=== PATIENT | male | born 1955 ===

== ENCOUNTER 2018-04-19 14:49 | Emergency (ER) | payer SELFPAY ==
[2018-04-19 15:08] VITALS: O2SAT 99
[2018-04-19] MEDS ORDERED: Iohexol 240 (50 ml) PO STA (15:21)
[2018-04-19] MEDS ORDERED: Sodium Chloride 0.9% 1,000 ML IV STA (15:22)
[2018-04-19] MEDS ORDERED: Iohexol 240 (50 ml) ONE (15:45)
--- NOTE | 2018-04-19 15:58 | ED PDOC ---
HPI: Abdomen Time Seen by Provider: 04/19/18 15:15 Chief Complaint (Nursing): Abdominal Pain Chief Complaint (Provider): Abdominal Pain History Per: Patient History/Exam Limitations: no limitations Onset/Duration Of Symptoms: Days (one week) Current Symptoms Are (Timing): Still Present Quality Of Discomfort: "Pain" Associated Symptoms: Vomiting. denies: Fever, Chills, Urinary Symptoms Additional Complaint(s): 62 year old male presents to the ED for an evaluation of swelling on the groin onset for 1 week. He states of abdominal pain yesterday. The pain worsens when getting up, sitting down or lifting. Today, patient had multiple non-bilious and non-bloody vomiting. Patient is able to tolerate small amounts of fluids except for food. He had a normal bowel movement earlier. Also reports of right inguinal hernia repair in 1990. Patient has been here in the [facility] for one month and on tour from [facility]. Otherwise, patient denies fever, chills, distended abdomen, urinary symptoms, black or bloody stool. PMD: no family provider Past Medical History Reviewed: Historical Data, Nursing Documentation, Vital Signs Vital Signs: Last Vital Signs Temp 98.1 F 04/19/18 15:04 Pulse 89 04/19/18 15:04 Resp 18 04/19/18 15:04 BP 136/86 04/19/18 15:04 Pulse Ox 99 04/19/18 15:04 - Medical History PMH: No Chronic Diseases - Surgical History Surgical History: Hernia Repair - Family History Family History: States: No Known Family Hx - Social History Current smoker - smoking cessation education provided: No - Home Medications Home Medications: Ambulatory Orders Medication Instructions Recorded Ondansetron ODT [Zofran ODT] 1 odt PO Q6 PRN #20 odt 04/19/18 RX: Ibuprofen [Motrin Tab] 600 mg PO Q8 PRN #30 tab 04/19/18 - Allergies Allergies/Adverse Reactions: Allergies Allergy/AdvReac Type Severity Reaction Status Date / Time No Known Allergies Allergy Verified 04/19/18 14:59 Review of Systems ROS Statement: Except As Marked, All Systems Reviewed And Found Negative (As per HPI, otherwise negative) Constitutional: Negative for: Fever, Chills Gastrointestinal: Positive for: Vomiting (non-bilious and non-bloody ), Abdominal Pain. Negative for: Melena Genitourinary Male: Negative for: Dysuria, Frequency, Incontinence, Hematuria Physical Exam - Reviewed Nursing Documentation Reviewed: Yes Vital Signs Reviewed: Yes - Physical Exam Appears: Positive for: No Acute Distress Head Exam: Positive for: ATRAUMATIC, NORMOCEPHALIC Skin: Positive for: Warm, Dry Eye Exam: Positive for: EOMI, PERRL ENT: Negative for: Pharyngeal Erythema, Tonsillar Exudate Neck: Positive for: Painless ROM, Supple Cardiovascular/Chest: Positive for: Regular Rate, Rhythm. Negative for: Murmur Respiratory: Positive for: Normal Breath Sounds. Negative for: Respiratory Distress Gastrointestinal/Abdominal: Positive for: Soft, Tenderness (RLQ). Negative for: Mass, Distended, Guarding, Rebound Male Genital Exam: Positive for: normal genitalia (No scrotun swelling), inguinal tenderness (large firm round swollen right inguinal hernia that is tender and non reducible) Back: Positive for: Normal Inspection. Negative for: L CVA Tenderness, R CVA Tenderness Extremity: Positive for: Normal ROM. Negative for: Deformity Lymphatic: Negative for: Adenopathy Neurologic/Psych: Positive for: Alert. Negative for: Motor/Sensory Deficits - Laboratory Results Result Diagrams: 04/19/18 16:00 04/19/18 16:00 - ECG O2 Sat by Pulse Oximetry: 99 (RA) Pulse Ox Interpretation: Normal Medical Decision Making Medical Decision Making: Time: 1521 Impression: right inguinal hernia Differential Diagnosis includes but is not limited to: right inguinal hernia strangulation vs mass vs obstruction vs incarceration Plan: -- Abdomen Pelvis PO & IV -- Labs -- Udip -- IV fluids -- Zofran 8mg IV 1750 Patient seen and evaluated by certified surgical technician, who was able to reduce inguinal hernia. Patient to follow up outpatient for further evaluation currently pending CT read Name: NA GARVIN Exam Date: Apr 19, 2018 6:15:18 PM EST Modality Type: CT Description: CT - ABDOMEN AND PELVIS WITH CORONAL AND SAGITTAL MPRS Gender: M Laterality: Not applicable : 55 Referring Physician: Malia Rodriguez EXAM: CT Abdomen and Pelvis with IV contrast CLINICAL HISTORY: Abd pain, vomiting rt inguinal swelling with irreducible hernia TECHNIQUE: Axial computed tomography images of the abdomen and pelvis with intravenous contrast. CONTRAST: With intravenous contrast. COMPARISON: None provided. FINDINGS: LUNG BASES: The lung bases appear clear. No pleural effusions are seen. LIVER: Unremarkable. GALLBLADDER AND BILE DUCTS: The gallbladder appears within normal limits. No radioopaque gallstones are seen. No biliary ductal dilatation is evident. PANCREAS: Unremarkable. SPLEEN: Unremarkable. ADRENAL GLANDS: Unremarkable. KIDNEYS, URETERS, AND BLADDER: The kidneys appear within normal limits. 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 There is no hydronephrosis or hydroureter. No urinary calculi are seen. STOMACH AND BOWEL: Unremarkable appearance of the stomach and bowel. No evidence of bowel obstruction. APPENDIX: No evidence of acute appendicitis on CT examination. PERITONEUM: No free fluid. No free air. Within the mesenteric cystic lesion in the right lower quadrant, measures (15-18 HU) which measures approximately 3.9 x 5.0 x 14.0 cm in craniocaudal, AP and transverse dimensions respectively. This mass abuts the medial wall of the lower ascending colon. A small-moderate sized right inguinal hernia is present which contains fat. LYMPH NODES: No lymphadenopathy is evident. REPRODUCTIVE: There is prostatic hypertrophy noted. The prostate gland measures up to approximately 6.8 cm transversely. VASCULATURE: No evidence of abdominal aortic aneurysm. BONES: No aggressive appearing osseous lesion. No acute osseous pathology evident. There is evidence of mild degenerative disc disease at L5-S1. IMPRESSION: 1. A large cylindrical shaped cystic lesion identified within the mesenteric fat of the right lower quadrant. May represent a mesenteric or duplication cyst. Consider further evaluation with MRI pre/post contrast. 2. A [id number] right inguinal hernia is present which contains fat. 3. Prostatic hypertrophy. Measurement is given above. Electronically signed on Apr 19, 2018 7:28:48 PM EST by: Derrick Weathers M.D., MBA Certified By [employer] & [employer] Fellowship Trained MRI and CT Specialist [id number] Stable for discharge. Advised followup clinic for surgery eval. Scribe Attestation: Documented by Francisca Bonds, acting as a scribe for Malia Rodriguez MD. Provider Scribe Attestation: All medical record entries made by the Scribe were at my direction and personally dictated by me. I have reviewed the chart and agree that the record accurately reflects my personal performance of the history, physical exam, medical decision making, and the department course for this patient. I have also personally directed, reviewed, and agree with the discharge instructions and disposition. Disposition - Clinical Impression Clinical Impression: Inguinal hernia Counseled Patient/Family Regarding: Studies Performed, Diagnosis, Need For F ollowup, Rx Given - Disposition Referrals: [facility] [Outside] Disposition: Routine/Home Disposition Time: 19:43 Condition: IMPROVED Prescriptions: RX: Ibuprofen [Motrin Tab] 600 mg PO Q8 PRN #30 tab PRN Reason: Pain, Moderate (4-7) Ondansetron ODT [Zofran ODT] 1 odt PO Q6 PRN #20 odt PRN Reason: Nausea/Vomiting Instructions: Groin Hernia (DC) Print Language: LITHUANIAN
[2018-04-19 16:18] LABS: BASO % 0.2 % (0.0-2.0); EOS % 0.1 % (0.0-4.0); HEMOGLOBIN 17.1 g/dL (12.0-18.0); LYMPH # 0.9 K/uL (1.0-4.3); LYMPH % 11.4 % (20.0-40.0); MEAN CELL VOLUME 90.3 fl (80.0-94.0); MEAN CORPUSCULAR HGB CONC 33.2 g/dL (33.0-37.0); MONO # 0.4 K/uL (0.0-0.8); NEUT # 6.6 K/uL (1.8-7.0); NEUT % 83.3 % (50.0-75.0); NRBC % 0.1 % (0.0-0.0); RBC 5.7 Mil/uL (4.40-5.90); WHITE BLOOD COUNT 7.9 K/uL (4.8-10.8)
[2018-04-19 16:29] LABS: ALB/GLOB RATIO 1.3 (1.0-2.1); ALBUMIN 4.4 g/dL (3.5-5.0); ALT/SGPT 19 U/L (21-72); AST/SGOT 25 U/L (17-59); BLOOD UREA NITROGEN 18 mg/dl (9-20); CALCIUM 9.8 mg/dL (8.4-10.2); GFR NON-AFRICAN AMERICAN > 60
[2018-04-19] MEDS ORDERED: Iohexol 300 100 ML IJ ONE (17:25)
[2018-04-19] MEDS ORDERED: Sodium Chloride 0.9% 50 ML IV ONE (17:25)
--- NOTE | 2018-04-19 17:56 | CP.PCM.CON ---
History of Present Illness - History of Present Illness History of Present Illness: Surgery: Dr. Hays Reason for consult: possible incarcerated right inguinal hernia HPI: Patient is a 62 y/o male w/ pmhx of right IHR in 1990, presents complaining of right groin pain for approximately 5 days. He states he noticed a bulge which increases in size with lifting and straining. He reports associated nausea and 1 episode of vomiting yesterday. He reports normal bowel movement yesterday and is passing flatus. He has been tolerating liquids w/o vomiting. He denies f/c chest pain or shortness of breath. PMH: denies PSH: right IHR Social: denies substance abuse Review of Systems - Constitutional Constitutional: absent: Anorexia, Chills, Fever - EENT Eyes: Decreased Night Vision. absent: Blind Spots, Blurred Vision Ears: absent: Disequilibrium, Dizziness Nose/Mouth/Throat: absent: Nasal Congestion, Nasal Trauma - Cardiovascular Cardiovascular: absent: Chest Pain, Dyspnea - Respiratory Respiratory: absent: Cough, Dyspnea - Gastrointestinal Gastrointestinal: Nausea, Vomiting. absent: Abdominal Pain, Bloating, Change in Stool Character, Cramping, Diarrhea Additional comments: hernia right groin, reduced - Reproductive: Male Additional comments: no testicular pain or mass, inguinal canal clear on right - Musculoskeletal Musculoskeletal: absent: Muscle Weakness, Myalgias - Neurological Neurological: absent: Disequilibrium, Dizziness - Psychiatric Psychiatric: absent: Anxiety, Depression - Endocrine Endocrine: absent: Polydipsia, Polyphagia - Hematologic/Lymphatic Hematologic: absent: Easy Bleeding, Easy Bruising Past Patient History - Past Social History Smoking Status: Current Some Days Smoker - PSYCHIATRIC Hx Substance Use: No - SURGICAL HISTORY Hx Herniorrhaphy: Yes (rt) - ANESTHESIA Hx Anesthesia: Yes Hx Anesthesia Reactions: No Meds Allergies/Adverse Reactions: Allergies Allergy/AdvReac Type Severity Reaction Status Date / Time No Known Allergies Allergy Verified 04/19/18 14:59 - Medications Medications: Current Medications Dextrose/Sodium Chloride (Dextrose 5%-0.9% Ns 500 Ml) 1,000 mls @ 100 mls/hr IV .Q10H ONE Stop: 04/20/18 01:29 Last Admin: 04/19/18 16:59 Dose: 100 mls/hr Physical Exam - Constitutional Appears: Non-toxic, No Acute Distress - Head Exam Head Exam: ATRAUMATIC, NORMOCEPHALIC - Eye Exam Eye Exam: EOMI, Normal appearance - ENT Exam ENT Exam: Mucous Membranes Moist - Respiratory Exam Respiratory Exam: NORMAL BREATHING PATTERN. absent: Respiratory Distress - Cardiovascular Exam Cardiovascular Exam: REGULAR RHYTHM. absent: Tachycardia - GI/Abdominal Exam GI & Abdominal Exam: Hernia (rigth groin, reduced ), Soft. absent: Distended, Guarding, Tenderness - Rectal Exam Rectal Exam: Deferred - Exam Exam: absent: Circumcision, Scrotal Swelling, Testicular Tenderness External exam: NORMAL EXTERNAL EXAM - Extremities Exam Extremities exam: Positive for: normal inspection. Negative for: calf tenderness - Neurological Exam Neurological exam: Alert, Oriented x3 - Psychiatric Exam Psychiatric exam: Normal Affect, Normal Mood - Skin Skin Exam: Dry, Normal Color, Warm Results - Vital Signs Recent Vital Signs: Last Vital Signs Temp 98.1 F 04/19/18 15:04 Pulse 89 04/19/18 15:04 Resp 18 04/19/18 15:04 BP 136/86 04/19/18 15:04 Pulse Ox 99 04/19/18 16:10 - Labs Result Diagrams: 04/19/18 16:00 04/19/18 16:00 Labs: Laboratory Results - last 24 hr 04/19/18 04/19/18 16:00 16:00 WBC 7.9 RBC 5.70 Hgb 17.1 Hct 51.5 H MCV 90.3 MCH 30.0 MCHC 33.2 RDW 13.0 Plt Count 242 MPV 8.0 Neut % (Auto) 83.3 H Lymph % (Auto) 11.4 L [place] % (Auto) 5.0 Eos % (Auto) 0.1 Baso % (Auto) 0.2 Neut # (Auto) 6.6 Lymph # (Auto) 0.9 L [place] # (Auto) 0.4 Eos # (Auto) 0.0 Baso # (Auto) 0.0 Sodium 141 Potassium 4.2 Chloride 101 Carbon Dioxide 30 Anion Gap 14 BUN 18 Creatinine 0.8 Est GFR ( Amer) > 60 Est GFR (Non-Af Amer) > 60 Random Glucose 103 Calcium 9.8 Total Bilirubin 0.4 AST 25 ALT 19 L Alkaline Phosphatase 103 Total Protein 7.7 Albumin 4.4 Globulin 3.3 Albumin/Globulin Ratio 1.3 Assessment & Plan - Assessment and Plan (Free Text) Assessment: 62 y/o male w/ recurrent right inguinal hernia, reduced Plan: -hernia reduced bedside -f/u CT w/ po contrast -if negative ok for discharge home from surgical standpoint and f/u outpatient f or elective surgical repair -d/w Dr. Saúl Burleson PGY4
[2018-04-19 20:00] VITALS: BP 123/81; PULSE 84; RESP 17; TEMP 97.9
--- NOTE | 2018-04-20 11:29 | CT ---
Date of service: 04/19/2018 PROCEDURE: CT Abdomen and Pelvis with contrast HISTORY: RIGHT inguinal swelling with irreducible hernia COMPARISON: None. TECHNIQUE: Contrast dose: 95 mL Omnipaque 300 Radiation dose: Total exam DLP = 726.67 mGy-cm. This CT exam was performed using one or more of the following dose reduction techniques: Automated exposure control, adjustment of the mA and/or kV according to patient size, and/or use of iterative reconstruction technique. FINDINGS: LOWER THORAX: Unremarkable. LIVER: Unremarkable. No gross lesion or ductal dilatation. GALLBLADDER AND BILE DUCTS: Unremarkable. PANCREAS: Unremarkable. No gross lesion or ductal dilatation. SPLEEN: Unremarkable. ADRENALS: Unremarkable. No mass. KIDNEYS AND URETERS: Unremarkable. No hydronephrosis. No solid mass. VASCULATURE: Unremarkable. No aortic aneurysm. No aortic atherosclerotic calcification or mural plaque present. BOWEL: No bowel obstruction. No abnormal bowel loops. Medial to the base of the cecum there is a tubular fluid collection measuring roughly 4.9 x 13.7 cm. 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 Differential diagnosis includes a nonspecific mesenteric cyst. Surgical excision should be considered. No focal mural thickening appreciated. No evidence of intraperitoneal mucous deposits APPENDIX: Appendix not discretely identified aside from fluid collection noted above. PERITONEUM: No ascites. No pneumoperitoneum. Right inguinal hernia containing only mesenteric fat and no bowel. LYMPH NODES: Unremarkable. No enlarged lymph nodes. BLADDER: Unremarkable. REPRODUCTIVE: Mild prostate enlargement. BONES: No acute fracture. OTHER FINDINGS: None. IMPRESSION: Right inguinal hernia containing only mesenteric fat and no bowel. Incidental tubular fluid collection adjacent to and with mass effect upon the base of the cecum suspicious for appendiceal mucocele, approximately 13.7 cm in greatest dimension. Surgical excision should be considered. The preliminary findings for this examination were reported by [facility] at 7:28 p.m. on 04/19/2018. There is discordance of this report with the preliminary findings. The tubular fluid collection in question is felt to most likely represent an appendiceal mucocele. Less likely this represents a mesenteric cyst
== END 2018-04-19 20:10 | disposition home or self-care (01) ==
LOC: H.ER 14:49
DX: K40.91 Unilateral inguinal hernia, without obstruction or gangrene, recurrent (principal); N40.0 Benign prostatic hyperplasia without lower urinary tract symptoms
CPT/HCPCS: 74177; 80053; 85025; 96360; 99284; J2405; J7030; J7042; Q9966; Q9967